=== PATIENT | male | born 1940 | race Caucasian/White ===

== ENCOUNTER 2020-10-18 07:50 | Emergency (ER) | payer MEDICARE ==
[~2020-10-18] VITALS: Ht 180.3 cm; Wt 84.1 kg
--- NOTE | 2020-10-18 08:27 | RAD ---
AP portable chest radiograph 10/18/2020 Clinical History: Chest pain. An AP erect portable digital radiograph of the chest was obtained. The cardiac silhouette is mildly enlarged. The thoracic aorta is mildly tortuous. Surgical clips over lying the lateral right upper lobe. No acute pulmonary infiltrate is seen. No pleural effusion or pne umothorax is noted. There is diffuse osteopenia the visualized bony structures. Degenerative changes are seen involving the thoracic spine. IMPRESSION: No acute abnormality is seen. Electronically signed by: Diego Sneed MD (10/18/2020 8:25 AM) [id number]
[2020-10-18 08:35] LABS: BASO # 0.1 x10^3/uL (0.0-0.2); BASO % 1 % (0-3); EOS # 0.1 x10^3/uL (0.0-0.7); EOS % 2 % (0-3); HEMATOCRIT 43.5 % (39.0-53.0); HEMOGLOBIN 14.7 g/dL (13.0-17.5); LYMPH # 2.2 x10^3/uL (1.0-4.8); LYMPH % 28 % (24-48); MEAN CORPUSCULAR HEMOGLOBIN 33 pg (25-35); MEAN CORPUSCULAR HGB CONC 34 g/dL (31-37); MEAN CORPUSCULAR VOLUME 97 fL (79-100); MONO # 0.8 x10^3/uL (0.0-1.1); MONO % 10 % (0-9); NEUT # 4.6 x10^3/uL (1.8-7.7); NEUT % 59 % (31-73); PLATELET COUNT 216 x10^3/uL (140-400); RED BLOOD COUNT 4.47 x10^6/uL (4.30-5.70); RED CELL DISTRIBUTION WIDTH 13.7 % (11.5-14.5); WHITE BLOOD COUNT 7.8 x10^3/uL (4.0-11.0)
[2020-10-18 08:42] LABS: CALCIUM 9.2 mg/dL (8.5-10.1); CREATININE 1.3 mg/dL (0.7-1.3); GFR 53.5
--- NOTE | 2020-10-18 09:56 | ED.ADGEN ---
Past Medical History Past Surgical History: Other Additional Past Surgical Histo: CARDIAC ABLATION Smoking Status: Current Every Day Smoker Alcohol Use: None General Adult EDM: Chief Complaint: CHEST PAIN HPI: HPI: Patient is a 79 year old [f__sex] who presents with [] Review of Systems: Review of Systems: Complete ROS is negative unless otherwise documented in HPI Current Medications: Current Medications Medications (Trade) Dose Ordered Sig/Anastacia Start Time Stop Time Status Last Admin Dose Admin Diltiazem HCl (Cardizem Iv Push) 20 mg 1X ONCE 10/18/20 08:15 10/18/20 08:22 DC Allergies: Allergies: Allergies Coded Allergies Type Severity Reaction Last Updated Verified No Known Drug Allergies 10/18/20 No Physical Exam: PE: General: Awake, alert, NAD. Well Nourished, well hydrated. Cooperative HEENT: Atraumatic, EOMI, PERRL, airway patent, moist oral mucosa Neck: Supple, trachea midline Respiratory: CTA bilaterally, normal effort, no wheezing/crackles CV: Irregularly irregular tachycardia, no murmur, cap refill <2 GI: Soft, nondistended, nontender, no masses MSK: No obvious deformities Skin: Warm, dry, intact Neuro: A&O x3, speech NL, sensory and motor grossly intact, no focal deficits Psych: Normal affect, normal mood, not suicidal or homicidal Current Patient Data: Labs: Laboratory Tests Test 10/18/20 08:02 White Blood Count 7.8 x10^3/uL (4.0-11.0) Red Blood Count 4.47 x10^6/uL (4.30-5.70) Hemoglobin 14.7 g/dL (13.0-17.5) Hematocrit 43.5 % (39.0-53.0) Mean Corpuscular Volume 97 fL (79-100) Mean Corpuscular Hemoglobin 33 pg (25-35) Mean Corpuscular Hemoglobin Concent 34 g/dL (31-37) Red Cell Distribution Width 13.7 % (11.5-14.5) Platelet Count 216 x10^3/uL (140-400) Neutrophils (%) (Auto) 59 % (31-73) Lymphocytes (%) (Auto) 28 % (24-48) Monocytes (%) (Auto) 10 % (0-9) H Eosinophils (%) (Auto) 2 % (0-3) Basophils (%) (Auto) 1 % (0-3) Neutrophils # (Auto) 4.6 x10^3/uL (1.8-7.7) Lymphocytes # (Auto) 2.2 x10^3/uL (1.0-4.8) Monocytes # (Auto) 0.8 x10^3/uL (0.0-1.1) Eosinophils # (Auto) 0.1 x10^3/uL (0.0-0.7) Basophils # (Auto) 0.1 x10^3/uL (0.0-0.2) Sodium Level 142 mmol/L (136-145) Potassium Level 4.0 mmol/L (3.5-5.1) Chloride Level 106 mmol/L (98-107) Carbon Dioxide Level 29 mmol/L (21-32) Anion Gap 7 (6-14) Blood Urea Nitrogen 15 mg/dL (8-26) Creatinine 1.3 mg/dL (0.7-1.3) Estimated GFR (Cockcroft-Gault) 53.5 Glucose Level 105 mg/dL (70-99) H Calcium Level 9.2 mg/dL (8.5-10.1) Troponin I Quantitative < 0.017 ng/mL (0.000-0.055) AC-Fcr-I-Type Natriuretic Peptide 480 pg/mL (0-449) H Laboratory Tests 10/18/20 08:02 Laboratory Tests 10/18/20 08:02 Vital Signs: Vital Signs Date Time Temp Pulse Resp B/P (MAP) Pulse Ox O2 Delivery O2 Flow Rate FiO2 10/18/20 10:25 90 20 121/61 (81) 90 Nasal Cannula 2.0 10/18/20 08:09 98.3 98.3 EKG: EKG: [] Heart Score: C/O Chest Pain: N/A Risk Factors: Risk Factors: DM, Current or recent (<one month) smoker, HTN, HLP, family history of CAD, obesity. Risk Scores: Score 0 - 3: 2.5% MACE over next 6 weeks - Discharge Home Score 4 - 6: 20.3% MACE over next 6 weeks - Admit for Clinical Observation Score 7 - 10: 72.7% MACE over next 6 weeks - Early Invasive Strategies Radiology/Procedures: Radiology/Procedures: [] Course & Med Decision Making: Course & Med Decision Making Pertinent Labs and Imaging studies reviewed. (See chart for details) [] Dragon Disclaimer: Dragon Disclaimer: This electronic medical record was generated, in whole or in part, using a voice recognition dictation system. Departure Departure Impression: Primary Impression: Atrial fib/flutter, transient Disposition: 01 HOME / SELF CARE / HOMELESS Condition: STABLE Referrals: NON,STAFF (PCP) ALEX NARVAEZ MD Patient Instructions: Atrial Fibrillation ALPESH MENDOZA MD Oct 18, 2020 09:56
[2020-10-18 10:25] VITALS: BP 121/61
--- NOTE | 2020-10-18 14:52 | EKG ---
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
--- NOTE | 2020-10-18 15:57 | EKG ---
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1940 Requested By: ALPESH MENDOZA Order Number: [id number] Reading MD: Measurements Intervals [place] Rate: 72 P: 0 NM: 190 QRS: -45 QRSD: 260 T: 31 QT: 430 QTc: 473 Interpretive Statements SINUS RHYTHM ABNORMAL LEFT AXIS DEVIATION NON SPECIFIC INTRAVENTRICULAR BLOCK QRS(T) CONTOUR ABNORMALITY CONSIDER ANTEROLATERAL MYOCARDIAL DAMAGE CONSIDER INFERIOR INFARCT ABNORMAL ECG RI6.02 Compared to ECG 10/18/2020 07:57:26 Myocardial infarct finding now present Left anterior fascicular block no longer present Right bundle-branch block no longer present Bifascicular block no longer present Right ventricular hypertrophy no longer present Early repolarization no longer present
== END 2020-10-18 10:55 | disposition home or self-care (01) ==
LOC: ER 07:50
DX: I48.91 Unspecified atrial fibrillation (principal); R07.89 Other chest pain
CPT/HCPCS: 36415; 71045; 80048; 83880; 84484; 85025; 93005; 99285-25

== ENCOUNTER → 2020-11-17 | Outpatient (CLI) | payer MEDICARE ==
[2020-10-18 10:25] VITALS: BP 121/61
--- NOTE | 2020-11-17 18:19 | RAD ---
MR#: [id number] Date of Study: 11/17/2020 Ordering Physician: ALEX NARVAEZ, Referring Physician: ALEX NARVAEZ, Tech: Geo Harley MBA, RDMS, RVT, RDCS, RTR APPROVED REPORT Patient Location: OUT-PATIENT Indications PAD VELOCITY AND DOPPLER WAVEFORM ANALYSIS RIGHT cm/secWaveformSeverity LEFT cm/secWaveform Severity dCFA 119.0MonophasicdCFA 156.0Biphasic Prof Fem Art. 64.0MonophasicProf Fem Art. 71.0Biphasic Fem Art Prox. 309.0MonophasicFem Art Prox. 210.0Triphasic Fem Art Mid. 150.0MonophasicFem Art Mid. 158.0Triphasic Fem Art Dist. 111.0MonophasicFem Art Dist. 163.0Triphasic Pop Art(Fossa) 58.0MonophasicPop Art(AK) 73.0Biphasic TOE FORMER STITCHDOWNS Prox. 30.0MonophasicPTA Prox. 34.0Biphasic TOE FORMER STITCHDOWNS Dist. 15.0MonophasicPTA Dist. 19.0Biphasic Per Art Mid. 38.0MonophasicPer Art Mid. 60.0Biphasic DIONTE Prox. 70.0MonophasicATA Prox. 61.0Biphasic DPA 36MonophasicDPA 46Biphasic Findings Grayscale images the bilateral lower extremity arterial vessels demonstrates moderate diffuse atheros clerosis. On the right side there are monophasic waveforms with normal velocities in the common femoral artery likely related to arterial calcification but cannot rule out more proximal stenosis. There is a grea ter than 50% stenosis involving the proximal SFA. There are diminished monophasic waveforms below th e knee likely consistent with more proximal stenosis as well as moderate diffuse disease involving th e posterior tibial artery. There is three-vessel runoff. On the left side there are mostly biphasic and triphasic waveforms without any focal high-grade steno sis and three-vessel runoff. Critical Notification Critical Value: No <Conclusion> 1. 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 Signed by : Pedro Mendiola, Electronically Approved : 11/17/2020 18:18:50
--- NOTE | 2020-11-18 21:44 | CARD ---
MR#: [id number] Date of Study: 11/17/2020 Ordering Physician: ALEX NARVAEZ, Referring Physician: ALEX NARVAEZ, Tech: Loree Almeida [facility] APPROVED REPORT EXAM: Two-dimensional and M-mode echocardiogram with Doppler and color Doppler. Other Information Quality : AverageHR: 69bpm Rhythm : Atrial FibrillationTechnically limited study due to body habitus. INDICATION Atrial Fibrillation RISK FACTORS Hypertension 2D DIMENSIONS RVDd4.0 (2.9-3.5cm)Left Atrium(2D)3.7 (1.6-4.0cm) IVSd1.0 (0.7-1.1cm)Aortic Root(2D)3.6 (2.0-3.7cm) LVDd5.4 (3.9-5.9cm)LVOT Diameter2.4 (1.8-2.4cm) PWd0.9 (0.7-1.1cm)LVDs3.8 (2.5-4.0cm) FS (%) 28.4 %SV75.3 ml LVEF(%)54.4 (>50%) Aortic Valve AoV Peak Humphrey.154.8cm/sAoV VTI39.9cm AO Peak GR.9.6mmHgLVOT Peak Humphrey.86.2cm/s AO Mean GR.5mmHgAVA (VMAX)2.42cm2 Mitral Valve MV E Jedpyitu60.0cm/sMV DECEL [id number] MV A Jodbcgrd55.6cm/sE/A Ratio1.4 Tricuspid Valve TR P. [id number]/sTR Peak Gr.26mmHg LEFT VENTRICLE The left ventricle is normal size. There is normal left ventricular wall thickness. The systolic func tion is low normal. EF 50% There is mild global hypokinesis of the left ventricle. Tissue Doppler quentin ging reveals moderate left ventricular diastolic dysfunction. RIGHT VENTRICLE The right ventricle is normal size. The right ventricle is mildly hypertrophied. The right ventricula r systolic function is normal. ATRIA The left atrium is mildly dilated. The right atrium is mildly dilated. The interatrial septum is inta ct with no evidence for an atrial septal defect or patent foramen ovale as noted on 2-D or Doppler im aging. AORTIC VALVE The aortic valve is calcified with restricted leaflet motion. Doppler and Color Flow revealed no sign ificant aortic regurgitation. There is no significant aortic valvular stenosis. MITRAL VALVE The mitral valve is normal in structure and function. There is no evidence of mitral valve prolapse. There is no mitral valve stenosis. Doppler and Color-flow revealed mild mitral regurgitation. TRICUSPID VALVE The tricuspid valve is normal in structure and function. Doppler and Color Flow revealed trace to mil d tricuspid regurgitation. Estimated PAP 30 mmHg. There is no tricuspid valve stenosis. PULMONIC VALVE Doppler and Color Flow revealed no pulmonic valvular regurgitation. There is no pulmonic valvular cha nosis. GREAT VESSELS The aortic root is normal in size. The ascending aorta is mildly dilated at 3.7 cm. The IVC is normal in size and collapses >50% with inspiration. PERICARDIAL EFFUSION There is no evidence of significant pericardial effusion. Critical Notification Critical Value: No <Conclusion> The systolic function is low normal. EF 50% There is mild global hypokinesis of the left ventricle. The aortic valve is calcified with restricted leaflet motion. Doppler and Color Flow revealed trace to mild tricuspid regurgitation. Estimated PAP 30 mmHg. The ascending aorta is mildly dilated at 3.7 cm. Signed by : Pedro Mendiola, Electronically Approved : 11/18/2020 21:43:21
== END ==
LOC: ECHO 14:48
PROVIDERS: ATTEND Internal Medicine Cardiovascular Disease
DX: I08.3 Combined rheumatic disorders of mitral, aortic and tricuspid valves (principal); I70.203 Unspecified atherosclerosis of native arteries of extremities, bilateral legs
CPT/HCPCS: 93306; 93925

== ENCOUNTER → 2020-12-23 | Outpatient (CLI) | payer MEDICARE ==
--- NOTE | 2020-12-24 13:26 | RESP ---
DATE OF SERVICE: 12/23/2020 PULMONARY FUNCTION TEST ATTENDING PHYSICIAN: Wilmar Vincent MD. The patient's FVC was 1.8, which is 44% predicted; FEV1 of 1.07, which is 36% predicted. The FEV1/FVC ratio was reduced at 58% predicted. FEF 25-75 was 18% predicted. There was no significant response to bronchodilators. Total lung capacity was not done as well as residual volume. Diffusion capacity 58% predicted. IMPRESSION: 1. Severe obstructive airway disease. 2. Lung volumes could not be performed. 3. No response to bronchodilators. 4. Moderately reduced diffusion capacity. LUIS DR: Michelle TID: [id number] CC: WILMAR VINCENT MD
== END ==
LOC: PF 08:50
PROVIDERS: ATTEND Internal Medicine Pulmonary Disease
DX: J44.9 Chronic obstructive pulmonary disease, unspecified (principal); J98.8 Other specified respiratory disorders
CPT/HCPCS: 94060; 94640; 94726; 94729; 94664

== ENCOUNTER → 2021-08-11 | Outpatient (CLI) | payer MEDICARE ==
--- NOTE | 2021-08-11 16:05 | KCIC ---
Exam Date: 08/11/2021 2:[address] ABDOMEN W/O CONTRAST Indication: Reason: RUQ pain, intermittent pain. / Spl. Instructions: / History: Cholecystectomy.. TECHNIQUE: CT examination of the abdomen was performed without intravenous contrast. One or more of the following dose reduction techniques were utilized: *Automated exposure control (AEC) *Adjustment of mA and/or kV according to patient size *Use of iterative reconstruction technique *CT scan done according to ALARA, or ALARA/IMAGE GENTLY FINDINGS: The visualized lung bases demonstrate subsegmental atelectasis and/or scarring on the left. Status post cholecystectomy. Bilateral renal cysts are noted. Multiple nonobstructing renal calculi noted bilaterally measuring up to 1-2 mm on the right and 5 mm on the left. No hydronephrosis is se en on either side. The liver, spleen, pancreas, adrenal glands and kidneys are normal. Severe atherosclerotic calcifications are seen. No upper abdominal lymphadenopathy or ascites is seen. Limited visualized loops of bowel in the upper abdomen are within normal limits. Degenerative changes are seen in the spine. IMPRESSION: No evidence of acute upper abdominal pathology. Status post cholecystectomy. Bilateral renal cysts and nonobstructing renal calculi. No hydronephrosis on either side. Electronically signed by: Alex Mon MD (08/11/2021 4:02 PM) [email or web address]
== END ==
LOC: KCIC CT 14:22
PROVIDERS: ATTEND Nurse Practitioner
DX: N20.0 Calculus of kidney (principal); N28.1 Cyst of kidney, acquired; M47.816 Spondylosis without myelopathy or radiculopathy, lumbar region; I70.90 Unspecified atherosclerosis; Z90.49 Acquired absence of other specified parts of digestive tract
CPT/HCPCS: 74150